=== PATIENT | female | born 1970 | race Caucasian/White ===

== ENCOUNTER 2025-05-22 13:48 | Emergency (ER) | payer OTHER ==
[~2025-05-22] VITALS: Ht 162.6 cm; Wt 57.3 kg
[2025-05-22] MEDS: ACETAMINOPHEN 1000 MG/100 ML IV STA (15:32)
[2025-05-22 17:19] VITALS: PULSE 85; RESP 20; TEMP 98.2; O2SAT 100
[2025-05-22] MEDS: KETOROLAC TROMETHAMINE 30 MG/ML VIAL IV STA (17:19)
[2025-05-22] MEDS: BACITRACIN ZINC 0.9GM TP ONE (17:57)
== END 2025-05-22 18:12 | disposition home or self-care (01) ==
LOC: FSED 14:26
DX: S00.83XA Contusion of other part of head, initial encounter (principal); S70.01XA Contusion of right hip, initial encounter; S20.412A Abrasion of left back wall of thorax, initial encounter; S40.811A Abrasion of right upper arm, initial encounter; V03.10XA Pedestrian on foot injured in collision with car, pick-up truck or van in traffic accident, initial encounter; Y92.89 Other specified places as the place of occurrence of the external cause; Z98.84 Bariatric surgery status
CPT/HCPCS: 70450; 71250; 72125; 74176; 80053; 81003; 85025; 99284; J0131; J1885